=== PATIENT | female | born 1970 | race African-American/Black ===

== ENCOUNTER 2019-02-28 11:27 | Emergency (ER) | payer OTHER ==
--- NOTE | 2019-02-28 12:17 | RAD ---
4 views of the left knee: 02/28/2019 COMPARISON: None HISTORY: Knee pain FINDINGS: There is a large knee joint effusion. No displaced fracture or evidence of dislocation is s een. No significant degenerative change. IMPRESSION: Large nonspecific knee joint effusion. This could be on the basis of inflammatory/infecti ous process in the proper clinical setting. If this study was performed in the setting of trauma, CT advised to evaluate for radio-occult fracture. Results were called to Dr. Escobedo at 12:15 PM 02/28/2019
[2019-02-28] MEDS ORDERED: Lidocaine 1% w/Epinephrine 1:100K 20 ML VIAL ONE (14:04)
== END 2019-02-28 14:45 | disposition home or self-care (01) ==
LOC: ERS 11:27
DX: M25.561 Pain in right knee (principal)
CPT/HCPCS: 20610